=== PATIENT | male | born 1995 | race Caucasian/White ===

== ENCOUNTER 2017-03-24 12:37 | Emergency (ER) | payer SELFPAY ==
[2017-03-24] MEDS ORDERED: DUONEB *Not for PRN Use IH ONE ×2 (12:52→13:03)
[2017-03-24] MEDS ORDERED: DELTASONE PO ONE ×2 (13:02→14:07)
--- NOTE | 2017-03-24 13:26 | Emergency Department Report ---
ED Asthma HPI - General Chief Complaint: Adult Asthma Stated Complaint: SOB/ ASTHMA Time Seen by Provider: 03/24/17 13:02 Source: patient Mode of arrival: Ambulatory Limitations: No Limitations - History of Present Illness Initial Comments: 22-year-old male past medical history asthma no history of intubations last hospitalization 1 year ago presents with complaint of 3 weeks of intermittent wheezing. Patient states that he has been using his nebulizer and rescue inhaler on a frequent basis over the last 3 weeks. States he just moved to the area from [place] and is exposed to cigarette smoke at work. Patient states that he works in construction. On exam patient is awake alert and oriented 3 no audible wheezing or stridor states that he has had a total of 4 nebulizer treatments since early this morning. States he feels somewhat better but still wheezing slightly. Patient denies any fever or chills, does complain of approximately 1 week of dry cough. Does not take any chronic steroids. States that he ran out of nebulizer fluid which is why he came to the ED. Patient does not know his baseline peak flow MD Complaint: "asthma attack", wheezing Onset/Timin -: week(s) Asthma History: childhood onset, history of frequent attac Severity: moderate Context: ran out of meds, smoke exposure Associated Symptoms: dry cough Treatments Prior to Arrival: inhaled bronchodilator - Related Data Current Asthma Therapy: inhaled bronchodilator Previous Rx's Medication Instructions Recorded Last Taken Type ALBUTEROL Inhaler [ProAir HFA 2 puff IH QID PRN #1 inhalation 03/24/17 Unknown Rx Inhaler] ALBUTEROL NEB's [Proventil 0.083% 2.5 mg IH Q4H PRN #25 ampul 03/24/17 Unknown Rx NEBS] Prednisone [predniSONE 10 mg 10 mg PO .TAPER #1 tab.ds.pk 03/24/17 Unknown Rx (6-Day Pack, 21 Tabs)] Allergies Allergy/AdvReac Type Severity Reaction Status Date / Time No Known Allergies Allergy Unverified 03/24/17 12:42 ED Review of Systems ROS: Stated complaint: SOB/ ASTHMA Other details as noted in HPI Constitutional: denies: chills, fever Eyes: denies: eye pain, eye discharge, vision change ENT: denies: ear pain, throat pain Respiratory: cough, shortness of breath, wheezing Cardiovascular: denies: chest pain, palpitations Endocrine: no symptoms reported Gastrointestinal: denies: abdominal pain, nausea, diarrhea Genitourinary: denies: urgency, dysuria Musculoskeletal: denies: back pain, joint swelling, arthralgia Skin: denies: rash, lesions Neurological: denies: headache, weakness, paresthesias Psychiatric: denies: anxiety, depression Hematological/Lymphatic: denies: easy bleeding, easy bruising ED Past Medical Hx - Past Medical History Previous Medical History?: Yes Hx Asthma: Yes - Surgical History Past Surgical History?: No - Social History Smoking Status: Never Smoker Substance Use Type: Alcohol, Prescribed - Medications Home Medications: Home Medications Medication Instructions Recorded Confirmed Last Taken Type ALBUTEROL Inhaler [ProAir HFA 2 puff IH QID PRN #1 inhalation 03/24/17 Unknown Rx Inhaler] ALBUTEROL NEB's [Proventil 0.083% 2.5 mg IH Q4H PRN #25 ampul 03/24/17 Unknown Rx NEBS] Prednisone [predniSONE 10 mg 10 mg PO .TAPER #1 tab.ds.pk 03/24/17 Unknown Rx (6-Day Pack, 21 Tabs)] ED Physical Exam - General Limitations: No Limitations General appearance: alert, in no apparent distress - Head Head exam: Present: atraumatic, normocephalic - Eye Eye exam: Present: normal appearance, PERRL, EOMI - ENT ENT exam: Present: mucous membranes moist - Neck Neck exam: Present: normal inspection - Respiratory Respiratory exam: Present: wheezes (wheezing right lung field). Absent: respiratory distress - Cardiovascular Cardiovascular Exam: Present: regular rate, normal rhythm. Absent: systolic murmur, diastolic murmur, rubs, gallop - GI/Abdominal GI/Abdominal exam: Present: soft, normal bowel sounds - Rectal Rectal exam: Present: deferred - Extremities Exam Extremities exam: Present: normal inspection - Back Exam Back exam: Present: normal inspection - Neurological Exam Neurological exam: Present: alert, oriented X3, CN II-XII intact, normal gait - Psychiatric Psychiatric exam: Present: normal affect, normal mood - Skin Skin exam: Present: warm, dry, intact, normal color. Absent: rash ED Course Vital Signs 03/24/17 03/24/17 03/24/17 12:42 12:58 13:14 Temperature 98.2 F Pulse Rate 82 Pulse Rate [ 85 88 Bilateral Upper Lobe] Respiratory 20 Rate Respiratory 20 20 Rate [Bilateral Upper Lobe] Blood Pressure 129/81 O2 Sat by Pulse 95 Oximetry 03/24/17 03/24/17 03/24/17 13:18 13:23 15:00 Temperature Pulse Rate Pulse Rate [ 88 89 Bilateral Upper Lobe] Respiratory 22 Rate Respiratory 18 18 Rate [Bilateral Upper Lobe] Blood Pressure O2 Sat by Pulse 95 Oximetry ED Medical Decision Making - Lab Data Result diagrams: 03/24/17 14:23 03/24/17 14:23 - Medical Decision Making A/P: Asthma exacerbation, reactive airway disease 1-albuterol inhaler refill, nebulizer refill, prednisone Dosepak 2-follow-up with primary care 3-patient advised to return to the ED for any worsening shortness of breath or wheezing 4-patient is ambulatory with no decrease in oxygen saturation on room air Critical care attestation.: If time is entered above; I have spent that time in minutes in the direct care of this critically ill patient, excluding procedure time. ED Disposition Clinical Impression: Asthma exacerbation Disposition: DC-01 TO HOME OR SELFCARE Is pt being admited?: No Does the pt Need Aspirin: No Condition: Stable Instructions: Asthma (ED), Reactive Airways Disease (ED) Prescriptions: ALBUTEROL Inhaler [ProAir HFA Inhaler] 2 puff IH QID PRN #1 inhalation PRN Reason: Shortness Of Breath ALBUTEROL NEB's [Proventil 0.083% NEBS] 2.5 mg IH Q4H PRN #25 ampul PRN Reason: Wheezing Prednisone [predniSONE 10 mg (6-Day Pack, 21 Tabs)] 10 mg PO .TAPER #1 tab.ds.pk Referrals: [facility] [Outside] - 3-5 Days [facility] [Provider Group] - 3-5 Days Time of Disposition: 15:32
[2017-03-24] MEDS ORDERED: MAGNESIUM SULFATE 2GM/50ML 2 GM/50 ML BAG IV ONE (14:07)
--- NOTE | 2017-03-24 14:30 | XRay Report ---
FINAL REPORT EXAM: XR CHEST ROUTINE 2V HISTORY: c/o worsening cough TECHNIQUE: 2 view examination of the chest PRIORS: None FINDINGS: Thoracic spine curvature with lower right apex. There is no consolidated pneumonia, pleural effusion, or pneumothorax. Cardiac silhouette size is normal without vascular congestion. The regional skeleton is without acute pathology. Large lung volumes bilaterally suggest hyperinflation which may reflect asthma or pulmonary emphysema. IMPRESSION: No evidence of acute cardiopulmonary disease Large lung volumes may be secondary to Strong inspiratory effort, asthma, or pulmonary emphysema
[2017-03-24 14:38] LABS: Basophils % (Auto) 0.7 % (0.0-1.8); Eosinophils % (Auto) 13.7 % (0.0-4.3); Hematocrit 43.7 % (35.5-45.6); Hemoglobin 14.8 gm/dl (11.8-15.2); Mean Corpuscular HGB Conc 34 % (32-34); Mean Corpuscular Hemoglobin 34 pg (28-32); Mean Corpuscular Volume 101 fl (84-94); Platelet Count 146 K/mm3 (140-440); Red Blood Count 4.33 M/mm3 (3.65-5.03); Red Cell Distribution Width 12.6 % (13.2-15.2); White Blood Count 6.3 K/mm3 (4.5-11.0)
[2017-03-24 14:52] LABS: Anion Gap 20 mmol/L; BUN/Creatinine Ratio 13.33; Blood Urea Nitrogen 12 mg/dL (9-20); Carbon Dioxide 22 mmol/L (22-30); Glucose 91 mg/dL (75-100); Potassium 3.9 mmol/L (3.6-5.0); Sodium 140 mmol/L (137-145)
[2017-03-24 15:43] VITALS: BP 124/82
== END 2017-03-24 15:44 | disposition home or self-care (01) ==
LOC: ED 12:37
DX: J45.901 Unspecified asthma with (acute) exacerbation (principal)
CPT/HCPCS: 36415; 71020; 80048; 85025; 94640; 96365; 99284; J3475; J7512

== ENCOUNTER 2017-11-06 19:14 | Emergency (ER) | payer SELFPAY ==
[2017-11-06 19:39] VITALS: BP 112/66
== END 2017-11-06 21:15 | disposition left against medical advice (07) ==
LOC: ED 19:14
DX: R51 Headache (principal); Z53.21 Procedure and treatment not carried out due to patient leaving prior to being seen by health care provider

== ENCOUNTER 2017-12-16 18:04 | Inpatient (IN) | payer SELFPAY ==
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
[2017-12-16] MEDS ORDERED: ZOFRAN IV ONE ×2 (19:28→22:10)
[2017-12-16] MEDS ORDERED: DILAUDID IV ONE ×2 (19:28→22:09)
[2017-12-16] MEDS ORDERED: XYLOCAINE 1% 20 mL INFILTRATI ONE (19:30)
[2017-12-16] MEDS ORDERED: BOOSTRIX IM ONE (20:00)
[2017-12-16 20:13] LABS: Hematocrit 45.4 % (35.5-45.6); Hemoglobin 15.5 gm/dl (11.8-15.2); Mean Corpuscular HGB Conc 34 % (32-34); Mean Corpuscular Hemoglobin 34 pg (28-32); Mean Corpuscular Volume 100 fl (84-94); Platelet Count 158 K/mm3 (140-440); Red Blood Count 4.56 M/mm3 (3.65-5.03); Red Cell Distribution Width 12.7 % (13.2-15.2)
[2017-12-16 20:15] LABS: Basophils % (Auto) 0.3 % (0.0-1.8); Eosinophils % (Auto) 0.5 % (0.0-4.3); Lymphocytes % (Auto) 10.1 % (13.4-35.0); Monocytes % (Auto) 5.4 % (0.0-7.3)
[2017-12-16 20:16] LABS: Eosinophils # (Auto) 0.1 K/mm3 (0.0-0.4); Lymphocytes # (Auto) 1.1 K/mm3 (1.2-5.4); Monocytes # (Auto) 0.6 K/mm3 (0.0-0.8)
[2017-12-16 20:26] LABS: Blood Urea Nitrogen TNR mg/dL (9-20)
[2017-12-16 20:27] LABS: BUN/Creatinine Ratio TNR; Calcium TNR mg/dL (8.4-10.2); Hemolysis Index TNR
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
[2017-12-16 21:03] LABS: BUN/Creatinine Ratio 16; Blood Urea Nitrogen 14 mg/dL (9-20); Calcium 8.6 mg/dL (8.4-10.2); Hemolysis Index 45
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
[2017-12-16] MEDS ORDERED: NACL 0.9% 500 ML IR ONE (21:13)
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
[2017-12-17 00:19] LABS: Hematocrit 43.4 % (35.5-45.6); Hemoglobin 14.4 gm/dl (11.8-15.2)
[2017-12-17] MEDS ORDERED: TYLENOL PO PRN (00:23)
[2017-12-17] MEDS ORDERED: ZOFRAN IV PRN ×2 (00:23→14:01)
[2017-12-17] MEDS ORDERED: RESTORIL PO PRN (00:24)
[2017-12-17 01:18] LABS: Albumin 4.2 g/dL (3.9-5); Bilirubin,Direct 0.3 mg/dL (0-0.2)
[2017-12-17] MEDS: HEPARIN SUB-Q SCH ×2 (01:38→12:38)
[2017-12-17] MEDS: MORPHINE IV PRN ×3 (02:22→09:49)
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
[2017-12-17 06:29] LABS: Bilirubin,Urine NEG (Negative); Blood,Urine SM (Negative); Color,Urine Yellow (Yellow); Mucus,Urine FEW /HPF; Urobilinogen,Urine < 2.0 mg/dL (<2.0)
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
[2017-12-17] MEDS: DILAUDID IV PRN (12:39)
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
[2017-12-17 16:27] LABS: Hematocrit 43.5 % (35.5-45.6); Hemoglobin 14.7 gm/dl (11.8-15.2); Mean Corpuscular HGB Conc 34 % (32-34); Mean Corpuscular Hemoglobin 34 pg (28-32); Mean Corpuscular Volume 100 fl (84-94); Platelet Count 145 K/mm3 (140-440); Red Blood Count 4.34 M/mm3 (3.65-5.03); Red Cell Distribution Width 12.6 % (13.2-15.2)
[2017-12-17 18:20] LABS: Total Cells Counted 100
[2017-12-17 18:21] LABS: Basophils % (Manual) 0 % (0.0-1.8); Eosinophils % (Manual) 0 % (0.0-4.3); Large Platelets 1+; Macrocytosis 1+; Platelet Estimate Consistent w Auto
[2017-12-18] MEDS: HEPARIN SUB-Q SCH ×3 (01:07→21:09)
[2017-12-18] MEDS: DILAUDID IV PRN ×2 (03:40→16:49)
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
[2017-12-18 06:25] LABS: Basophils % (Auto) 0.6 % (0.0-1.8); Eosinophils # (Auto) 0.1 K/mm3 (0.0-0.4); Hematocrit 41.9 % (35.5-45.6); Lymphocytes # (Auto) 1.5 K/mm3 (1.2-5.4); Lymphocytes % (Auto) 28.6 % (13.4-35.0); Mean Corpuscular HGB Conc 34 % (32-34); Mean Corpuscular Hemoglobin 34 pg (28-32); Mean Corpuscular Volume 100 fl (84-94); Monocytes # (Auto) 0.4 K/mm3 (0.0-0.8); Monocytes % (Auto) 8.3 % (0.0-7.3); Red Blood Count 4.18 M/mm3 (3.65-5.03); Red Cell Distribution Width 12.5 % (13.2-15.2)
[2017-12-18 06:36] LABS: Platelet Count 136 K/mm3 (140-440)
[2017-12-18 06:43] LABS: BUN/Creatinine Ratio 10; Blood Urea Nitrogen 9 mg/dL (9-20); Calcium 8.6 mg/dL (8.4-10.2); Hemolysis Index 6
--- NOTE | 2017-12-18 08:09 | XRay Report ---
AP CHEST: HISTORY: Follow up right pneumothorax The right apical pneumothorax has decreased from 11 mm to 9 mm in thickness since 12/17/17 at 1245 hours. The remainder of the examination is unchanged. IMPRESSION: Minimal improvement in the right apical pneumothorax.
[2017-12-18] MEDS: PERCOCET 5/325 PO PRN ×2 (10:21→19:14)
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
--- NOTE | 2017-12-18 19:29 | Progress Note ---
Assessment and Plan Pt feeling much better today. rhett reg diet. ambulating down halls without SOB L subconjuctival hemorrhage noted but pt states seeing well without compl Abd soft CxR stable surgically stable f/u CxR in am consider d/c in am if pt remains stable without compl Selected Entries 12/18/17 16:21 Temperature 98.8 F Pulse Rate 64 Respiratory 18 Rate Blood Pressure 117/68 Laboratory Tests 12/17/17 12/18/17 15:53 05:09 Hgb 14.7 14.0 Hct 43.5 41.9 Objective Vital Signs - 12hr 12/18/17 12/18/17 12/18/17 07:37 08:25 12:00 Temperature 98.0 F Pulse Rate 56 L 56 L Respiratory 18 Rate Blood Pressure 93/54 O2 Sat by Pulse 98 94 Oximetry 12/18/17 16:21 Temperature 98.8 F Pulse Rate 64 Respiratory 18 Rate Blood Pressure 117/68 O2 Sat by Pulse 96 Oximetry - Labs 12/18/17 05:09 12/18/17 05:09 Diabetes panel 12/18/17 Range/Units 05:09 Sodium 142 (137-145) mmol/L Potassium 3.5 L (3.6-5.0) mmol/L Chloride 100.3 (98-107) mmol/L Carbon Dioxide 25 (22-30) mmol/L BUN 9 (9-20) mg/dL Creatinine 0.9 (0.8-1.5) mg/dL Glucose 98 (75-100) mg/dL Calcium 8.6 (8.4-10.2) mg/dL Calcium panel 12/18/17 Range/Units 05:09 Calcium 8.6 (8.4-10.2) mg/dL Pituitary panel 12/18/17 Range/Units 05:09 Sodium 142 (137-145) mmol/L Potassium 3.5 L (3.6-5.0) mmol/L Chloride 100.3 (98-107) mmol/L Carbon Dioxide 25 (22-30) mmol/L BUN 9 (9-20) mg/dL Creatinine 0.9 (0.8-1.5) mg/dL Glucose 98 (75-100) mg/dL Calcium 8.6 (8.4-10.2) mg/dL Adrenal panel 12/18/17 Range/Units 05:09 Sodium 142 (137-145) mmol/L Potassium 3.5 L (3.6-5.0) mmol/L Chloride 100.3 (98-107) mmol/L Carbon Dioxide 25 (22-30) mmol/L BUN 9 (9-20) mg/dL Creatinine 0.9 (0.8-1.5) mg/dL Glucose 98 (75-100) mg/dL Calcium 8.6 (8.4-10.2) mg/dL
[2017-12-19] MEDS: DILAUDID IV PRN (03:24)
[2017-12-19] MEDS: PERCOCET 5/325 PO PRN ×3 (04:45→21:44)
--- NOTE | 2017-12-19 09:36 | XRay Report ---
ROUTINE CHEST, TWO VIEWS: HISTORY: Followup pneumothorax. The right apical pneumothorax is unchanged since yesterday's exam measuring 9 mm in thickness. IMPRESSION: No change.
[2017-12-19] MEDS: HEPARIN SUB-Q SCH ×2 (10:59→21:46)
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
[2017-12-19] MEDS: MORPHINE IV PRN (16:43)
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
[2017-12-20] MEDS: PERCOCET 5/325 PO PRN ×2 (04:57→12:17)
[2017-12-20 08:31] VITALS: BP 105/59
[2017-12-20] MEDS: DILAUDID IV PRN (09:43)
[2017-12-20] MEDS: HEPARIN SUB-Q SCH (10:00)
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
--- NOTE | 2017-12-20 12:00 | XRay Report ---
Chest 2 views: History: Followup of pneumothorax. Findings: Normal cardiomediastinal silhouette. Trachea is midline. Small right apical pneumothorax is noted without significant interval change. Impression: No significant interval change.
--- NOTE | 2017-12-20 14:08 | Discharge Summary ---
Providers - Providers Date of Admission: 12/17/17 00:18 Date of discharge: 12/20/17 Attending physician: SUNNI MCWILLIAMS 12/16/17 22:52 Consult to Physician [CONS] Urgent Comment: Consulting Provider: FAUSTINO FERREIRA Physician Instructions: eval for pneumothorax Reason For Exam: pneumothorax 12/17/17 00:35 Consult to Physician [CONS] Routine Comment: Consulting Provider: JOSE FUENTES Physician Instructions: Reason For Exam: CCU admit Primary care physician: SENIOR POLICY ASSOCIATE Hospitalization Condition: Stable Disposition: DC-01 TO HOME OR SELFCARE Time spent for discharge: 32 min - Discharge Diagnoses (1) Trauma Status: Acute (2) Rib fractures Status: Acute (3) Pneumothorax Status: Acute (4) Conjunctival hemorrhage of left eye Status: Acute Core Measure Documentation - Palliative Care Palliative Care/ Comfort Measures: Not Applicable - Core Measures Any of the following diagnoses?: none Exam - Constitutional Vitals: Temp Pulse Resp BP Pulse Ox 98.4 F 54 L 20 105/59 92 12/20/17 07:38 12/20/17 07:38 12/20/17 07:38 12/20/17 07:38 12/20/17 07:38 General appearance: Present: no acute distress, well-nourished - EENT ENT: other (subconjunctival hemorrhage) - Neck Neck: Present: supple, normal ROM - Respiratory Respiratory effort: normal Respiratory: negative: rales, rhonchi, wheezing - Cardiovascular Rhythm: regular Heart Sounds: Present: S1 & S2 - Extremities Extremities: no ischemia, No edema - Abdominal General gastrointestinal: Present: soft, non-tender, non-distended, normal bowel sounds - Integumentary Integumentary: Present: clear, warm - Musculoskeletal Musculoskeletal: strength equal bilaterally - Psychiatric Psychiatric: appropriate mood/affect, cooperative - Neurologic Neurologic: CNII-XII intact, moves all extremities Plan Activity: advance as tolerated Diet: regular Additional Instructions: Recommend follow-up Chest x-ray in 3 days check with primary care physician and then weekly until complete resolution noted. f/u private machine set up technician [Lung Doctor ] 3-4 days. See Private retort furnace helper[ system configuration specialist ] in 1-2 days. Reverse Unit Operator already oriented the patient and family about symptoms of pneumothorax recurrence , if you have shortness of breath go to ER or contact M.D. avoid air travel the next 2-4 weeks. Incentive spirometry Follow up with: PRIMARY CARE, [Primary Care Provider] - 3-5 Days MERRY HUERTA MD [Staff Physician] - 7 Days FAUSTINO FERREIRA MD [Staff Physician] - 7 Days SUNI DIAZ MD [Staff Physician] - 48 Hours Prescriptions: ALBUTEROL Inhaler [ProAir HFA Inhaler] 2 puff IH QID PRN #1 inhalation PRN Reason: Shortness Of Breath oxyCODONE /ACETAMINOPHEN [Percocet 5/325 mg] 1 tab PO BID PRN #6 tablet PRN Reason: Pain, Moderate (4-6)
== END 2017-12-20 15:20 | disposition home or self-care (01) | DRG 200 ==
LOC: ED 18:04 → CC1 12-17 00:18 → 4A 12-17 01:42
PROVIDERS: ADMIT Internal Medicine; ATTEND Internal Medicine
PROC: 0HQ1XZZ Repair Face Skin, External Approach (ICD-10-PCS; principal; 2017-12-16)
PROC: 3E0234Z Introduction of Serum, Toxoid and Vaccine into Muscle, Percutaneous Approach (ICD-10-PCS; 2017-12-16)
DX: S27.0XXA Traumatic pneumothorax, initial encounter (principal); S22.41XA Multiple fractures of ribs, right side, initial encounter for closed fracture; J90 Pleural effusion, not elsewhere classified; J45.909 Unspecified asthma, uncomplicated; F17.210 Nicotine dependence, cigarettes, uncomplicated; H11.32 Conjunctival hemorrhage, left eye; S01.412A Laceration without foreign body of left cheek and temporomandibular area, initial encounter; Y04.0XXA Assault by unarmed brawl or fight, initial encounter; Y93.89 Activity, other specified; Y92.89 Other specified places as the place of occurrence of the external cause; Y99.8 Other external cause status; Z23 Encounter for immunization
CPT/HCPCS: 36415; 70450; 70486; 71045; 71046; 71111; 72125; 74177; 80048; 80074; 81001; 85007; 85014; 85018; 85025; 90715; 94760; 96372; 96374; 96375; 96376; J1170; J1644; J2270; J2405; Q9967

== ENCOUNTER 2018-10-18 05:08 | Emergency (ER) | payer SELFPAY ==
[2018-10-18 05:20] VITALS: BP 109/73
[2018-10-18] MEDS ORDERED: AUGMENTIN 875 MG PO ONE (07:47)
[2018-10-18] MEDS ORDERED: MOTRIN PO ONE (07:47)
--- NOTE | 2018-10-18 07:47 | Emergency Department Report ---
Minor Respiratory - HPI Chief Complaint: Upper Respiratory Infection Stated Complaint: RT SIDE OF FACE HURT/NASAL CONGESTION Time Seen by Provider: 10/18/18 07:31 Duration: 3 Days Pain Location: Facial, Nose Severity: moderate Minor Respiratory: Yes Rhinorrhea, Yes Able to Tolerate Fluids, No Sore Throat, No Ear Pain, No Cough, No Sick Contacts, No Hemoptysis, No Chest Pain, No Shortness of Breath, No Fever Other History: This is a 23-year-old female with no prior medical history who presents ED complaining of a nose, nasal congestion and facial pain from sinus pressure. Patient states he has had similar symptoms before with his sinuses since getting infected. Patient states that he also has a history of asthma and is out of his asthma medication. He denies fevers/chills/cough/nausea vomiting. ED Review of Systems ROS: Stated complaint: RT SIDE OF FACE HURT/NASAL CONGESTION Other details as noted in HPI Comment: All other systems reviewed and negative ED Past Medical Hx - Past Medical History Hx Asthma: Yes Hx HIV: No - Surgical History Past Surgical History?: No - Social History Smoking Status: Never Smoker Substance Use Type: Marijuana - Medications Home Medications: Home Medications Medication Instructions Recorded Confirmed Last Taken Type ALBUTEROL Inhaler (OR & NICU) 2 puff IH QID PRN #1 inhalation 12/20/17 Unknown Rx [ProAir HFA Inhaler] oxyCODONE /ACETAMINOPHEN [Percocet 1 tab PO BID PRN #6 tablet 12/20/17 Unknown Rx 5/325 mg] Prednisone [predniSONE 10 mg 10 mg PO .TAPER #1 tab.ds.pk 06/02/18 Unknown Rx (6-Day Pack, 21 Tabs)] ALBUTEROL Inhaler(NF) [VENTOLIN 2 puff IH Q4-6H PRN #1 inha 10/18/18 Unknown Rx Inhaler(NF)] Amoxicillin/K Clav Tab [Augmentin 1 each PO BID #20 tablet 10/18/18 Unknown Rx 875MG TAB] Ibuprofen [Motrin 800 MG tab] 800 mg PO TID #20 tablet 10/18/18 Unknown Rx guaiFENesin ER [Mucinex ER] 600 mg PO Q12H #10 tablet.er 10/18/18 Unknown Rx Minor Respiratory Exam - Exam General: Vital signs noted. No distress. Alert and acting appropriately. HEENT: Yes Moist Mucous Membranes, Yes Frontal Tenderness, Yes Maxillary Tenderness, No Pharyngeal Erythema, No Pharyngeal Exudates, No Rhinorrhea, No Conjuctival Injection Ear: Neither TM Bulge, Neither TM Erythema, Neither EAC Pain, Neither EAC Discharge Neck: Yes Supple, No Adenopathy Lungs: Yes Good Air Exchange, No Wheezes, No [place], No Stridor, No Cough, No Labored Respirations, No Retractions, No Use of Accessory Muscles, No Other Abnormal Lung Sounds Heart: Yes Regular, No Murmur Abdomen: Yes Normal Bowel Sounds, No Tenderness, No Peritoneal Signs Skin: No Rash, No Edema Neurologic: Alert and oriented, no deficits. Musculoskeletal: Unremarkable. ED Course Vital Signs 10/18/18 10/18/18 05:19 05:37 Temperature 98.4 F 98.4 F Pulse Rate 92 H 92 H Respiratory 15 18 Rate Blood Pressure 109/73 109/73 O2 Sat by Pulse 95 95 Oximetry ED Medical Decision Making - Medical Decision Making 23-year-old male presents to sinusitis. Vital signs normal patient is in acute distress. Patient received medication in the ED. Patient has no respiratory or acute distress. Discussed follow-up with primary care physician. Critical care attestation.: If time is entered above; I have spent that time in minutes in the direct care of this critically ill patient, excluding procedure time. ED Disposition Clinical Impression: Sinusitis, acute Disposition: - TO HOME OR SELFCARE Is pt being admited?: No Does the pt Need Aspirin: No Condition: Stable Instructions: Acute Bacterial Rhinosinusitis (ED), Sinusitis (ED) Additional Instructions: Make sure to follow up with the primary care physician as discussed. Take all your medications as you've been prescribed. If you have any worsening symptoms or develop new symptoms please return to ED immediately. Prescriptions: ALBUTEROL Inhaler(NF) [VENTOLIN Inhaler(NF)] 2 puff IH Q4-6H PRN #1 inha PRN Reason: Wheezing Amoxicillin/K Clav Tab [Augmentin 875MG TAB] 1 each PO BID #20 tablet guaiFENesin ER [Mucinex ER] 600 mg PO Q12H #10 tablet.er Ibuprofen [Motrin 800 MG tab] 800 mg PO TID #20 tablet Referrals: TERE CARUSO MD [Primary Care Provider] - 3-5 Days Forms: Work/School Release Form(ED) Time of Disposition: 07:59
== END 2018-10-18 08:10 | disposition home or self-care (01) ==
LOC: ED 05:08
DX: J01.90 Acute sinusitis, unspecified (principal); J45.909 Unspecified asthma, uncomplicated; F12.10 Cannabis abuse, uncomplicated
CPT/HCPCS: 99282

== ENCOUNTER 2020-06-13 20:40 | Emergency (ER) | payer SELFPAY ==
[2020-06-13 22:27] VITALS: BP 109/67
== END 2020-06-13 22:40 | disposition left against medical advice (07) ==
LOC: ED 20:40
DX: J45.909 Unspecified asthma, uncomplicated (principal); Z53.21 Procedure and treatment not carried out due to patient leaving prior to being seen by health care provider